=== PATIENT | male | born 1975 | race Caucasian/White ===

== ENCOUNTER → 2020-12-16 13:33 | Outpatient (BNVA) | payer OTHER, MEDICARE, MEDICAID, SELFPAY | PROVIDERS: Family Provider Counselor Professional; Visit Provider Psychiatry & Neurology Psychiatry | DX: F39 Unspecified mood [affective] disorder (principal); Z79.899 Other long term (current) drug therapy; Z03.89 Encounter for observation for other suspected diseases and conditions ruled out; F29 Unspecified psychosis not due to a substance or known physiological condition | CPT/HCPCS: 80053; 80061; 80164; 83036; 85025 ==